=== PATIENT | female | born 1995 | race Hispanic/Latino ===

== ENCOUNTER 2020-03-03 16:22 | Emergency (ER) | payer OTHER, SELFPAY ==
[2020-03-03 16:41] VITALS: BP 131/84; PULSE 95; RESP 16; TEMP 37.2; O2SAT 99
--- NOTE | 2020-03-03 16:46 | ED.ABDPAIN ---
HPI - Abdominal Pain General Chief Complaint: Abdominal Pain Stated Complaint: abd pain Time Seen by Provider: 03/03/20 16:46 Source: patient Mode of arrival: ambulatory Limitations: no limitations History of Present Illness HPI narrative: Ambika Hollis is a 25 yo female w no PMH who came to express care for abdominal pain, worsening since yesterday. Pain was night seem better this morning but around lunchtime she began to vomit and pain is intensified and generalized to her abdomen. He came to express care because she is afraid of hospitals; had stillbirth in 2013 and says she is avoided hospital since then Related Data Home Medications Medication Instructions Recorded Confirmed levonorgestrel-ethinyl estradiol 1 tablet PO DAILY 02/01/20 0.1 mg-20 mcg tablet Allergies Allergy/AdvReac Type Severity Reaction Status Date / Time No Known Allergies Allergy Verified 05/17/15 13:39 Review of Systems Review of Systems: Narrative: CONSTITUTIONAL: Denies fever, chills, sweats. EYES: Denies visual changes, redness, discharge. ENT: Denies rhinorrhea, congestion, sore throat, otalgia. CARDIOVASCULAR: Denies chest pain, palpitations, edema. RESPIRATORY: Denies dyspnea, wheezing, cough GASTROINTESTINAL: Has abdominal pain, nausea, vomiting, no diarrhea. GENITOURINARY: Denies dysuria, hematuria, abnormal discharge SKIN: Denies rash or itching. NEUROLOGIC: Denies numbness, or focal weakness. PSYCHIATRIC: Denies anxiety or depression. PMFSH Past Medical History Medical History Anemia Heart murmur History of stillbirth 2013 PCOS (polycystic ovarian syndrome) Family History Family History Mother Diabetes mellitus Social History Social History Smoking status: Never smoker Alcohol intake: current Substance use: never Comments At time of signature, I agree with nursing past medical, surgical, social and family history. There is no relevant family history pertinent to the presenting complaint. Exam Narrative: Exam Narrative: GENERAL: This is a well-nourished, well-developed patient, in moderate distress. Complaining of nausea HEAD: normocephalic, atraumatic. EYES: Sclera clear/white. Vision is grossly intact. EARS: External ears normal,. Hearing grossly intact. NOSE: External nose normal without nasal discharge, nares without redness, no rhinorrhea. THROAT: Mucous membranes moist, NECK: Neck supple, non-tender CARDIOVASCULAR: Mild tachycardic rate and rhythm without murmurs, gallops, or rubs. RESPIRATORY: Clear to auscultation. Breath sounds equal bilaterally. No wheezes, rales, or rhonchi. GASTROINTESTINAL: Generalized abdomen soft,tender, positive Anderson sign SKIN: warm, intact with no suspicious lesions or rash, good texture and turgor. NEURO: awake, alert, and oriented to person, place and time. There were no obvious focal neurologic abnormalities. Steady gait EXTREMITIES: Normal range of motion. BACK: Nontender without deformity Course Course Emergency Course: Patient referred to emergency room for further assessment as needs blood work and CT scan Vital Signs Vital signs: Vital Signs Temperature 99.0 F 03/03/20 16:41 Pulse Rate 95 03/03/20 16:41 Respiratory Rate 16 03/03/20 16:41 Blood Pressure 131/84 03/03/20 16:41 Pulse Oximetry 99 03/03/20 16:41 Temperature 99.0 F 03/03/20 16:41 Pulse Rate 95 03/03/20 16:41 Respiratory Rate 16 03/03/20 16:41 Blood Pressure 131/84 03/03/20 16:41 Pulse Oximetry 99 03/03/20 16:41 MDM - Abdominal Pain Differential Diagnosis Differential diagnosis: Likely abdominal pain, acute appendicitis, pancreatitis and small bowel obstruction Discharge Plan Discharge Clinical Impression: Abdominal pain Qualifiers: Abdominal location: right lower quadrant Qualifi
== END 2020-03-03 17:13 | disposition short-term general hospital (02) ==
PROVIDERS: Emergency Provider Nurse Practitioner; PCP Internal Medicine
DX: R10.31 Right lower quadrant pain (principal); E28.2 Polycystic ovarian syndrome; Z86.2 Personal history of diseases of the blood and blood-forming organs and certain disorders involving the immune mechanism
CPT/HCPCS: 99212; G0463

== ENCOUNTER 2020-03-03 17:25 | Emergency (ER) | payer OTHER, SELFPAY ==
--- NOTE | ~2020-03-03 | CT_ITS ---
EXAMINATION: CT abdomen pelvis w con DATE: 03/03/2020 18:37 INDICATION: Right lower quadrant pain TECHNIQUE: Computed tomography (CT) of the abdomen and pelvis was performed with 100 cc Omnipaque 350 intravenous contrast. The dose-length product was 1050.83 mGy-cm. Automated exposure control and ite rative reconstruction technique were employed. COMPARISON: CT dated 05/17/2015 FINDINGS: Lung bases are unremarkable. Heart size is normal. No significant pleural or pericardial ef fusion. There is a small subcentimeter hypodensity of the left hepatic lobe, most likely benign cyst or hemangioma. The spleen, pancreas, adrenal glands and kidneys are unremarkable. There is mild bilateral urothelial enhancement. No obstructing mass or stone. No abnormal pelvic masses or fluid collections. Normal ap pendix. No significant vascular abnormality. No lymphadenopathy. IMPRESSION: 1. Mild bilateral urothelial enhancement. Consider ascending urinary tract infection in the appropria te clinical setting. Reviewed, dictated and finalized at location A. IMPRESSION: 1. Mild bilateral urothelial enhancement. Consider ascending urinary tract infe ction in the appropriate clinical setting.
[2020-03-03 17:30] VITALS: BP 133/76; PULSE 95; RESP 18; TEMP 36.2; O2SAT 99
--- NOTE | 2020-03-03 17:40 | ED.ABDPAIN ---
HPI - Abdominal Pain General Chief Complaint: Abdominal Pain <Aren Johnson PA-C - Last Filed: 03/03/20 19:47> Stated Complaint: ABD Pain, Send from Urgent Care <Aren Johnson PA-C - Last Filed: 03/03/20 19:47> Time Seen by Provider: 03/03/20 17:28 <Aren Johnson PA-C - Last Filed: 03/03/20 19:47> Source: patient <Aren Johnson PA-C - Last Filed: 03/03/20 19:47> Mode of arrival: ambulatory <Aren Johnson PA-C - Last Filed: 03/03/20 19:47> Limitations: no limitations <EMELIA Rodríguez Last Filed: 03/03/20 19:47> History of Present Illness HPI narrative: Patient is a 25-year-old female who presents to emergency department for evaluation of abdominal pain from urgent care noting pain to the lower quadrants of the abdomen for the last day with associated nausea and vomiting chills patient denies similar occurrence in the past or sick contacts. Patient took ibuprofen last night with minimal improvement. Patient went to urgent care today and was referred to emergency department for further evaluation. Patient on arrival to emergency department is in the room in no distress. <Aren Johnson PA-C - Last Filed: 03/03/20 19:47> Related Data Home Medications: Home Medications Medication Instructions Recorded Confirmed levonorgestrel-ethinyl estradiol 1 tablet PO DAILY 02/01/20 0.1 mg-20 mcg tablet <Aren Johnson PA-C - Last Filed: 03/03/20 19:47> Allergies/Adverse Reactions: Allergies Allergy/AdvReac Type Severity Reaction Status Date / Time No Known Allergies Allergy Verified 03/03/20 17:33 <Aren Johnson PA-C - Last Filed: 03/03/20 19:47> Review of Systems Review of Systems: All systems reviewed & are unremarkable except as noted in HPI and below <Arne Johnson PA-C - Last Filed: 03/03/20 19:47> PMFSH Past Medical History Medical History: Medical History Anemia Heart murmur History of stillbirth 2014 PCOS (polycystic ovarian syndrome) <Aren Johnson PA-C - Last Filed: 03/03/20 19:47> Social History Social History: Social History Smoking status: Never smoker Alcohol intake: current Substance use: never Gender identity (if verbalized by the patient): Female <Aren Johnson PA-C - Last Filed: 03/03/20 19:47> Exam Narrative: Exam Narrative: GENERAL: Well-appearing, well-nourished, and in no acute distress. HEAD: Normocephalic, atraumatic. EYES: PERRLA and EOMI. ENT: Nares clear, no rhinorrhea or epistaxis. Mucous membranes moist. CHEST: Clear to auscultation. No respiratory distress. No wheezes rales or rhonchi HEART: Regular rate and rhythm. No murmur heard. Normal peripheral pulses. ABDOMEN: Soft, tenderness in the lower quadrants with voluntary guarding on palpation of the right lower quadrant, nondistended EXTREMITIES: Normal range of motion. No edema. SKIN: Warm, dry, no rash. NEURO: No focal deficits. Alert and oriented x3. PSYCH: Normal mood and affect. <Aren Johnson PA-C - Last Filed: 03/03/20 19:47> Course Vital Signs Vital signs: Vital Signs Temperature 36.2 C L 03/03/20 17:30 Pulse Rate 95 03/03/20 17:30 Respiratory Rate 18 03/03/20 17:30 Blood Pressure 133/76 03/03/20 17:30 Pulse Oximetry 99 03/03/20 17:30 Temperature 36.2 C L 03/03/20 17:30 Pulse Rate 95 03/03/20 17:30 Respiratory Rate 18 03/03/20 17:30 Blood Pressure 133/76 03/03/20 17:30 Pulse Oximetry 99 03/03/20 17:30 <Aren Johnson PA-C - Last Filed: 03/03/20 19:47> Vital Signs Temperature 36.2 C L 03/03/20 17:30 Pulse Rate 95 03/03/20 17:30 Respiratory Rate 18 03/03/20 17:30 Blood Pressure 133/76 03/03/20 17:30 Pulse Oximetry 99 03/03/20 17:30 Temperature 36.2 C L 03/03/20 17:30 Pulse Rate 95
[2020-03-03 17:49] LABS: Basophils Absolute Auto 0.1 K/mm3 (0.0-0.1); Basophils Percent Auto 0.5 % (0.2-1.2); Eosinophils Absolute Auto 0.2 K/mm3 (0-0.3); Eosinophils Percent Auto 1.3 % (0-4.4); Hematocrit 45.9 % (37.0-47.0); Hemoglobin 15.4 g/dL (12.0-15.0); Immature Granulocyte Absolute 0.04 K/mm3 (0.00-0.031); Immature Granulocyte Percent A 0.3 % (0-0.5); Lymphocytes Percent Auto 27.6 % (18.3-44.2); Mean Corpuscular HGB Conc 33.6 g/dl (32-36); Mean Corpuscular Hemoglobin 29.3 pg (26-34); Mean Corpuscular Volume 87.4 fl (80-100); Mean Platelet Volume 9.7 fl (7.4-10.4); Monocytes Absolute Auto 0.9 K/mm3 (0.1-0.6); Monocytes Percent Auto 7.2 % (2.6-8.5); Neutrophils Absolute Auto 7.6 K/mm3 (1.3-6.7); Neutrophils Percent Auto 63.1 % (45.5-73.1); Platelet Count Result 363 k/mm3 (150-375); Red Blood Count 5.25 M/mm3 (4.2-5.4); Red Cell Distribution Width 12.6 % (11.5-14.5)
[2020-03-03 17:54] LABS: Add Urine Microscopic? YES; Appearance Urine Clear (Clear); Bacteria Urine 1+ /hpf; Bilirubin Urine Negative (Negative); Blood Urine 2+ (Negative); Color Urine Yellow (Yellow); Glucose Urine UA Negative (Negative); Ketones Urine Negative (Negative); Leukocyte Esterase Ur 3+ LEU/UL (Negative); Mucus Urine Rare /lpf; Nitrate Urine Negative (Negative); Protein Urine Negative (Negative); RBC Urine 21-50 /hpf (0-2); Specific Grav Ur 1.013 (1.001-1.035); Squamous Epithelial Cell Urine Occasional /hpf (Few); Urobilinogen Urine Negative mg/dL (<2.0); WBC Urine 21-30 /hpf
[2020-03-03] MEDS: SODIUM CHLORIDE 0.9% IV 1,000 ML 999 ML IV CONT (17:58)
[2020-03-03] MEDS: FAMOTIDINE 20 MG/2 ML VIAL IV PUSH (17:58)
[2020-03-03] MEDS: ONDANSETRON INJ 4 MG/2 ML VIAL IV PUSH (17:59)
[2020-03-03 18:02] LABS: Alanine Aminotransferase 50 U/L (4-35); Albumin Level 4.6 g/dL (3.5-5.1); Alkaline Phosphatase 93 U/L (38-126); Aspartate Amino Transferase 55 U/L (14-36); Bilirubin,Total 0.4 mg/dL (0.2-1.3); Blood Urea Nitrogen 10 mg/dL (7-17); Calcium 9.2 mg/dL (8.4-10.2); Carbon Dioxide 25 mmol/L (22-30); Chloride 105 mmol/L (98-107); Estimated CRCL calculation 147 ml/min; Estimated Glomerular Filt Rate > 60; Glucose 92 mg/dL (65-105); Lipase 102 U/L (23-300); Potassium 4.1 mmol/L (3.4-5.0); Sodium 138 mmol/L (137-145)
--- NOTE | 2020-03-03 19:11 | PC.NURSE ---
Report to oncoming RN
--- NOTE | 2020-03-03 19:19 | PC.NURSE ---
Bedside report received from MARIS Helms. Awaiting disposition.
--- NOTE | 2020-03-03 19:26 | PC.NURSE ---
Verified that additional rocephin is duplicate dose per EVELYN Valenzuela.
[2020-03-03] MEDS: KETOROLAC 30 MG/ML VIAL (*BKC) IV PUSH (19:54)
== END 2020-03-03 20:15 | disposition home or self-care (01) ==
PROVIDERS: Emergency Medicine Emergency Medical Services; Emergency Provider Emergency Medicine; PCP Internal Medicine
DX: N39.0 Urinary tract infection, site not specified (principal); E28.2 Polycystic ovarian syndrome; Z86.2 Personal history of diseases of the blood and blood-forming organs and certain disorders involving the immune mechanism
CPT/HCPCS: 36415; 74177; 80053; 81001; 81025; 83690; 85025; 87077; 87086; 87088; 87186; 96361; 96365; 96375; 99284; J0131; J0696; J1885; J2405; J7030; Q9967

== ENCOUNTER 2024-10-14 09:33 | Outpatient (CLI) | payer OTHER, SELFPAY ==
[2024-10-14 09:56] LABS: Basophils Percent Auto 0.5 % (0.2-1.2); Eosinophils Absolute Auto 0.2 K/mm3 (0-0.3); Eosinophils Percent Auto 2.7 % (0-4.4); Hematocrit 37.5 % (37.0-47.0); Immature Granulocyte Absolute 0.02 K/mm3 (0.00-0.031); Immature Granulocyte Percent A 0.3 % (0-0.5); Lymphocytes Absolute Auto 2.37 K/mm3 (0.9-3.2); Lymphocytes Percent Auto 30.2 % (18.3-44.2); Mean Corpuscular Hemoglobin 25.7 pg (26-34); Mean Corpuscular Volume 80.3 fl (80-100); Mean Platelet Volume 9.8 fl (7.4-10.4); Monocytes Absolute Auto 0.5 K/mm3 (0.1-0.6); Monocytes Percent Auto 6.9 % (2.6-8.5); Neutrophils Absolute Auto 4.7 K/mm3 (1.3-6.7); Neutrophils Percent Auto 59.4 % (45.5-73.1); Platelet Count Result 340 k/mm3 (150-375); Red Blood Count 4.67 M/mm3 (4.2-5.4); Red Cell Distribution Width 15.9 % (11.5-14.5); White Blood Count 7.8 K/mm3 (4.5-10.0)
[2024-10-14 10:36] LABS: Iron 37 ug/dL (37-170)
[2024-10-14 10:46] LABS: Percent Iron Saturation 8 % (20-50)
[2024-10-14 11:10] LABS: Ferritin 5.22 ng/mL (6.24-137)
[2024-10-14 14:43] LABS: Beta HCG Quantitative < 2.39 mIU/ML
[2024-10-14 19:18] LABS: Progesterone <0.5 ng/mL
[2024-10-15 05:39] LABS: DHEA-Sulfate 201 mcg/dL (14-349)
[2024-10-15 05:59] LABS: FSH 5.4 mIU/mL; Prolactin 6.2 ng/mL
[2024-10-20 00:08] LABS: Estradiol, Ultrasensitive 56 pg/mL
== END 2024-10-14 09:34 | disposition home or self-care (01) ==
LOC: ANHLAB 09:35
PROVIDERS: Visit Provider Obstetrics & Gynecology
DX: E28.2 Polycystic ovarian syndrome (principal); N93.9 Abnormal uterine and vaginal bleeding, unspecified
CPT/HCPCS: 36415; 82627; 82670; 82728; 83001; 83540; 83550; 84144; 84146; 84402; 84403; 84443; 84702; 85025

== ENCOUNTER 2024-12-23 08:30 | Outpatient (CLI) | payer OTHER, SELFPAY ==
--- OUTSIDE RECORDS SUMMARY | 2024-12-23 08:59 | XMS_ITS | Clinical Summary ---
Author Organization [facility] [employer] Address [address] [place] [address] Care Team Providers Care Safekeeping Clerk Name Role Phone Marlo Myers DO Primary Care Provider [phone] Source Comments [facility] [employer]non-owned Affiliates and Associated Physician Practices is amultiple site organization consisting of ambulatory clinics and hospital sitesin [place], [place], [place]. This disclosure is being madepursuant to the Care Everywhere program and may not contain all information available regarding this patient. Last updated 18.[facility] [employer] Allergies No known active allergies Medications * Be aware that medications may not be up to date on this document. Alwaysverify current medications with the patient. Medication Sig Dispensed Refills Start Date End Date Status Norethin-Eth Estrad-Fe Biphas (LO LOESTRIN FE PO) Active Social History Tobacco Use Types Packs/Day Years Used Date Smoking Tobacco: Never Smokeless Tobacco: Never Sex and Gender Information Value Date Recorded Sex Assigned at Not on file Gender Identity Not on file Sexual Orientation Not on file Last Filed Vital Signs Vital Sign Reading Time Taken Comments Blood Pressure 104/70 02/06/2019 9:26 AM CDT Pulse 105 10/01/2019 6:21 PM [employer]ER Temperature 37.2 C (99 F) 10/01/2019 6:21 PM [employer]ER Respiratory Rate 16 10/01/2019 6:21 PM [employer]S SYSTEMS ENGINEER Oxygen Saturation 99% 10/01/2019 6:21 PM [employer]S SYSTEMS ENGINEER Inhaled Oxygen Concentration - - Weight 83.9 kg (185 lb) 10/01/2019 6:21 PM [employer]S [employer]ER Height 157.5 cm (5' 2 ) 10/01/2019 6:21 PM [employer]S ENG[employer]ER Body Mass Index 33.84 10/01/2019 6:21 PM [employer] SYSTEMS ENGINEER Plan of Treatment Health Maintenance Due Date Last Done Comments PAP SMEAR 1996 HIV SCREENING 01/10/2011 HEPATITIS C SCREENING 01/06/2014 DTAP/TDAP/TD VACCINES (1 - Tdap) 01/10/2015 HEPATITIS B VACCINE (1 of 3 - 19+ 3-dose series) 01/10/2015 COVID-19 VACCINE (1 - 2023-2 5 season) 2024 INFLUENZA VACCINE (#1) 2024 DEPRESSION SCREENING 10/07/2024 ZOSTER VACCINE (1 of 2) 01/10/2046 HIB VACCINE Aged Out No longer eligi ble based on patient's age to complete this topic HPV VACCINE Aged Out No longer eligi ble based on patient's age to complete this topic MENINGOCOCCAL (Group B) VACC INE SHARED DECISION-MAKING Aged Out No longer eligibl e based on patient's age to complete this topic MENINGOCOCCAL GROUPS A/C/Y/W VACCINE Aged Out No longer eligible b ased on patient's age to complete this topic PNEUMOCOCCAL VACCINE Aged Out No long er eligible based on patient's age to complete this topic Care Teams Safekeeping Clerk Relationship Specialty Start Date End Date Marlo Myers DO PCP - General Internal Medicine 06/25/17
[2024-12-23 10:26] LABS: Beta HCG Quantitative < 2.39 mIU/ML
== END 2024-12-23 08:31 | disposition home or self-care (01) ==
LOC: ANHLAB 08:32
PROVIDERS: Visit Provider Obstetrics & Gynecology
DX: Z30.430 Encounter for insertion of intrauterine contraceptive device (principal)
CPT/HCPCS: 36415; 84702